=== PATIENT | male | born 1955 | race Caucasian/White ===

== ENCOUNTER 2018-08-12 08:10 | Day surgery (SDC) | payer MEDICAID ==
[2018-08-12] VITALS (11 sets, daily range): BP systolic 97–137; BP diastolic 42–79
[~2018-08-12] VITALS: Ht 185.4 cm; Wt 98.2 kg
[~2018-08-12 08:10] MED LIST: ALBU18HF2 INH; ALBU2.5V13 NEB; APIX2.5T PO; ASPI81TA52 PO; ATOR40TA PO; CETI10CA PO; CLON-514 PO; HYDR-3973 PO; MOME13HF2 INH; SENN-162 PO; SPIIN INH; SYN0.088T PO; TRAZ-218 PO
[2018-08-12] MEDS ORDERED: fentaNYL/PF 50MCG/1 ML 2ML syringe IV ONE (08:40)
[2018-08-12] MEDS ORDERED: MIDAZolam 5mg/ml 2ml vial IV ONE (08:40)
[2018-08-12 08:47] LABS: BASOPHILS % (AUTO) 0.5 % (0-1); EOSINOPHILS # (AUTO) 0.1 X10'3 (0-0.9); EOSINOPHILS % (AUTO) 1.3 % (0-6); HEMATOCRIT 32.1 % (42.0-52.0); HEMOGLOBIN 10.4 g/dl (14.0-17.9); LYMPHOCYTES # (AUTO) 1.1 X10'3 (1.1-4.8); LYMPHOCYTES % (AUTO) 13.6 % (21-51); MEAN CORPUSCULAR HEMOGLOBIN 30.4 PG (27.0-31.0); MEAN CORPUSCULAR HGB CONC 32.4 g/dL (33.0-36.5); MEAN CORPUSCULAR VOLUME 93.7 FL (78-98); MEAN PLATELET VOLUME 6.5 FL (7.4-10.4); MONOCYTES # (AUTO) 0.7 X10'3 (0-0.9); MONOCYTES % (AUTO) 9.1 % (2-12); NEUTROPHILS % (AUTO) 75.5 % (42-75); PLATELET COUNT 206 X10'3 (140-440); RED BLOOD COUNT 3.42 X10'6 (4.70-6.10); RED CELL DISTRIBUTION WIDTH 18.7 % (11.5-14.5)
[2018-08-12 08:54] LABS: ALBUMIN 3.5 G/DL (3.4-5.0); ANION GAP 6 (8-16); BLOOD UREA NITROGEN 37 MG/DL (7-18); BUN/CREATININE RATIO 15.2 (5.4-32.0); CALCIUM 8.5 MG/DL (8.5-10.1); CHLORIDE 104 MMOL/L (99-107); CREATININE 2.44 MG/DL (0.60-1.10); GLUCOSE 99 MG/DL (70-104); MAGNESIUM 1.8 MG/DL (1.5-2.4); POTASSIUM 4.1 MMOL/L (3.5-5.1); SODIUM 140 MMOL/L (135-145); TOTAL CARBON DIOXIDE 29.8 MMOL/L (24-32); eGFR 27 ML/MIN
[2018-08-12 09:03] LABS: PROTHROMBIN TIME 10.6 SECONDS (9.0-12.0)
[2018-08-12] MEDS ORDERED: APIX5TAB3 PO (09:21)
[2018-08-12 09:24] LABS: ANISOCYTOSIS 2+; PLATELET ESTIMATE NORMAL
[2018-08-12] MEDS ORDERED: HYDR-4353 PO (09:24)
[2018-08-12 09:25] LABS: ELLIPTOCYTES FEW
[2018-08-12] MEDS ORDERED: LEVO112T5 PO (09:26)
[2018-08-12] MEDS ORDERED: FURO40TA4 PO (09:38)
[2018-08-12] MEDS ORDERED: RANI150T44 PO (09:39)
[2018-08-12] MEDS ORDERED: POTA20TA19 PO (09:39)
[2018-08-12] MEDS ORDERED: AMIO200T54 PO (09:40)
[2018-08-12] MEDS ORDERED: METO50TA7 PO (09:42)
[2018-08-12] MEDS ORDERED: PRED10TA23 PO (09:43)
[2018-08-12] MEDS ORDERED: FERR-119 PO (09:45)
[2018-08-12] MEDS ORDERED: ATOR40TA PO (09:46)
[2018-08-12] MEDS ORDERED: normal saline 1000ml 1,000 ML IV SCH (10:10)
== END 2018-08-12 11:15 | disposition home or self-care (01) ==
LOC: SSTAY O 08:10
PROVIDERS: ATTEND Internal Medicine Cardiovascular Disease
DX: I48.91 Unspecified atrial fibrillation (principal); E78.5 Hyperlipidemia, unspecified; I25.10 Atherosclerotic heart disease of native coronary artery without angina pectoris; I47.2 Ventricular tachycardia; I48.4 Atypical atrial flutter; Z79.899 Other long term (current) drug therapy; Z87.891 Personal history of nicotine dependence; Z85.89 Personal history of malignant neoplasm of other organs and systems; Z91.041 Radiographic dye allergy status; Z95.0 Presence of cardiac pacemaker
CPT/HCPCS: 36415; 80048; 83735; 85025; 85610; 92960; 93005; J2250; J3010; J7030

== ENCOUNTER 2019-04-05 11:19 | Day surgery (SDC) | payer MEDICAID ==
[~2019-04-05] VITALS: Ht 182.9 cm; Wt 108.9 kg
[~2019-04-05 11:19] MED LIST changes: +AMIO200T54 PO; -APIX2.5T PO; +APIX5TAB3 PO; -ASPI81TA52 PO; -CLON-514 PO; +FERR-119 PO; +FURO40TA4 PO; +HYDR-4353 PO; +LEVO112T5 PO; +METO50TA7 PO; +POTA20TA19 PO; +PRED10TA23 PO; +RANI-648 PO; -SYN0.088T PO; -TRAZ-218 PO; +TRAZ-251 PO
[2019-04-05] MEDS ORDERED: normal saline 1000ml 1,000 ML IV SCH ×2 (11:40→14:04)
[2019-04-05 12:30] VITALS: BP 116/62
[2019-04-05] MEDS ORDERED: Oxygen NASALCANN (12:49)
[2019-04-05] MEDS ORDERED: LEVO125T PO (12:49)
[2019-04-05 12:52] LABS: BASOPHILS # (AUTO) 0.1 X10'3 (0-0.2); BASOPHILS % (AUTO) 0.8 % (0-1); EOSINOPHILS # (AUTO) 0.1 X10'3 (0-0.9); EOSINOPHILS % (AUTO) 1.7 % (0-6); HEMATOCRIT 31.6 % (42.0-52.0); HEMOGLOBIN 10.4 g/dl (14.0-17.9); LYMPHOCYTES # (AUTO) 1.3 X10'3 (1.1-4.8); LYMPHOCYTES % (AUTO) 15.7 % (21-51); MEAN CORPUSCULAR HEMOGLOBIN 32.5 PG (27.0-31.0); MEAN CORPUSCULAR VOLUME 98.7 FL (78-98); MEAN PLATELET VOLUME 7.2 FL (7.4-10.4); MONOCYTES # (AUTO) 0.9 X10'3 (0-0.9); MONOCYTES % (AUTO) 11.1 % (2-12); NEUTROPHILS # (AUTO) 5.7 X10'3 (1.8-7.7); NEUTROPHILS % (AUTO) 70.7 % (42-75); PLATELET COUNT 181 X10'3 (140-440); RED CELL DISTRIBUTION WIDTH 16.9 % (11.5-14.5)
[2019-04-05] MEDS ORDERED: LIDOcaine 1%/PF 5ML 10 MG/ML VIAL SQ ONE (13:20)
[2019-04-05] MEDS ORDERED: midazolam 2 mg/2 ml injection IV PRN (13:20)
[2019-04-05] MEDS ORDERED: fentaNYL/PF 50MCG/1 ML 2ML syringe IV PRN (13:20)
[2019-04-05 13:23] LABS: ALBUMIN 3.2 G/DL (3.4-5.0); ANION GAP 8 (8-16); BLOOD UREA NITROGEN 29 MG/DL (7-18); BUN/CREATININE RATIO 13.9 (5.4-32.0); CALCIUM 8.2 MG/DL (8.5-10.1); CHLORIDE 109 MMOL/L (99-107); CREATININE 2.08 MG/DL (0.60-1.10); GLUCOSE 95 MG/DL (70-104); POTASSIUM 4.1 MMOL/L (3.5-5.1); SODIUM 146 MMOL/L (135-145); TOTAL CARBON DIOXIDE 28.6 MMOL/L (24-32); eGFR 32 ML/MIN
[2019-04-05] MEDS ORDERED: fentaNYL/PF 50MCG/1 ML 2ML syringe ONE (13:54)
[2019-04-05] MEDS ORDERED: LIDOcaine 1%/PF 5ML 10 MG/ML VIAL ONE (13:54)
[2019-04-05] MEDS ORDERED: midazolam 2 mg/2 ml injection ONE (13:54)
[2019-04-05 14:52] VITALS: BP 112/76
[2019-04-05 15:00] VITALS: BP 107/73
[2019-04-05 15:15] VITALS: BP 124/78
[2019-04-05 15:30] VITALS: BP 104/72
== END 2019-04-05 15:45 | disposition home or self-care (01) ==
LOC: SSTAY O 11:19
PROVIDERS: ATTEND Radiology Diagnostic Radiology
DX: I38 Endocarditis, valve unspecified (principal)
CPT/HCPCS: 36415; 36558; 76937; 77001; 80048; 85025; 99152; 99153; C1751; C1769; C1894; J2250; J3010; J7030; A9270

== ENCOUNTER 2019-05-04 08:31 | Day surgery (SDC) | payer MEDICAID ==
[~2019-05-04 08:31] MED LIST changes: -LEVO112T5 PO; +LEVO125T PO; +Oxygen NASALCANN; -RANI-648 PO
[2019-05-04] MEDS ORDERED: LIDOcaine 1% 30ml preserv. free vial SQ STA (08:37)
[2019-05-04] MEDS ORDERED: fentaNYL/PF 50MCG/1 ML 2ML syringe IV PRN (08:50)
[2019-05-04] MEDS ORDERED: LIDOcaine 1% 30ml preserv. free vial SQ ONE (08:50)
[2019-05-04 09:00] VITALS: BP 132/81
[2019-05-04] MEDS ORDERED: diphenhydrAMINE 50 mg/ml inj ONE (09:27)
[2019-05-04] MEDS ORDERED: fentaNYL/PF 50MCG/1 ML 2ML syringe ONE (09:27)
[2019-05-04] MEDS ORDERED: diphenhydrAMINE 50 mg/ml inj IV ONE (09:30)
[2019-05-04 10:00] VITALS: BP 136/74
== END 2019-05-04 10:20 | disposition home or self-care (01) ==
LOC: SSTAY O 08:31
PROVIDERS: ATTEND Radiology Diagnostic Radiology
DX: I38 Endocarditis, valve unspecified (principal)
CPT/HCPCS: 36589; J1200; J3010

== ENCOUNTER 2019-05-17 11:00 | Day surgery (SDC) | payer MEDICAID ==
[2019-05-17] VITALS (12 sets, daily range): BP systolic 111–153; BP diastolic 70–109
[~2019-05-17] VITALS: Ht 182.9 cm; Wt 108.6 kg
[2019-05-17] MEDS ORDERED: fentaNYL/PF 50MCG/1 ML 2ML syringe IV ONE (11:25)
[2019-05-17] MEDS ORDERED: atropine 0.1mg/ml 10ml syringe IV ONE (11:25)
[2019-05-17] MEDS ORDERED: MIDAZolam 5mg/ml 2ml vial IV ONE (11:25)
[2019-05-17] MEDS ORDERED: normal saline 1000ml 1,000 ML IV SCH (11:25)
[2019-05-17] MEDS ORDERED: morphine PEG (11:30)
[2019-05-17] MEDS ORDERED: BENZ0.5T43 PO (11:30)
[2019-05-17 11:59] LABS: BASOPHILS # (AUTO) 0.1 X10'3 (0-0.2); BASOPHILS % (AUTO) 0.5 % (0-1); EOSINOPHILS # (AUTO) 0.1 X10'3 (0-0.9); EOSINOPHILS % (AUTO) 0.9 % (0-6); HEMATOCRIT 41.6 % (42.0-52.0); HEMOGLOBIN 13.5 g/dl (14.0-17.9); LYMPHOCYTES # (AUTO) 1.2 X10'3 (1.1-4.8); LYMPHOCYTES % (AUTO) 11.9 % (21-51); MEAN CORPUSCULAR HGB CONC 32.4 g/dL (33.0-36.5); MEAN CORPUSCULAR VOLUME 98.7 FL (78-98); MONOCYTES # (AUTO) 0.8 X10'3 (0-0.9); MONOCYTES % (AUTO) 7.7 % (2-12); NEUTROPHILS # (AUTO) 8.1 X10'3 (1.8-7.7); PLATELET COUNT 189 X10'3 (140-440); RED BLOOD COUNT 4.21 X10'6 (4.70-6.10); RED CELL DISTRIBUTION WIDTH 15.9 % (11.5-14.5); WHITE BLOOD COUNT 10.3 X10'3 (4.5-11.0)
[2019-05-17 12:07] LABS: ALBUMIN 3.8 G/DL (3.4-5.0); ANION GAP 9 (8-16); BLOOD UREA NITROGEN 33 MG/DL (7-18); BUN/CREATININE RATIO 15.9 (5.4-32.0); CHLORIDE 105 MMOL/L (99-107); CREATININE 2.08 MG/DL (0.60-1.10); GLUCOSE 97 MG/DL (70-104); POTASSIUM 4.3 MMOL/L (3.5-5.1); SODIUM 141 MMOL/L (135-145); TOTAL CARBON DIOXIDE 27.5 MMOL/L (24-32); eGFR 32 ML/MIN
== END 2019-05-17 14:00 | disposition home or self-care (01) ==
LOC: SSTAY O 11:00
PROVIDERS: ATTEND Internal Medicine Cardiovascular Disease
DX: I48.4 Atypical atrial flutter (principal)
CPT/HCPCS: 36415; 80048; 83735; 85025; 85610; 92960; 93005; J2250; J3010; J7030